=== PATIENT | female | born 2000 | race Two or more races ===

== ENCOUNTER 2024-09-27 17:19 | Emergency (ER) | payer OTHER, SELFPAY ==
[2024-09-27 17:20] VITALS: BP 147/94
[2024-09-27 17:55] LABS: % Basophils 0.7 % (0-2); % Eosinophils 2.8 % (0-6); % Immature Granulocytes 0.3 % (0-0.5); % Lymphocytes 34.6 % (20.5-51.1); % Monocytes 7.7 % (1.7-9.3); % Neutrophils 53.9 % (42.2-75.2); Absolute Basophils 0.1 10^3/uL (0-0.2); Absolute Eosinophils 0.2 10^3/uL (0-0.7); Absolute Lymphocytes 2.3 10^3/uL (1.2-3.4); Absolute Monocytes 0.5 10^3/uL (0.1-0.6); Absolute Neutrophils 3.7 10^3/uL (1.4-6.5); Hematocrit 34.8 % (37.0-47.0); Hemoglobin 11.5 g/dL (12.0-16.0); Mean Corpuscular Hgb 27.3 pg (27.0-31.0); Mean Corpuscular Volume 82.5 fL (81.0-99.0); Mean Platelet Volume 9.5 fL (7.4-10.4); Nucleated Red Blood Cells % 0 %; Platelet Count 272 10^3/uL (130-400); Red Blood Cell Count 4.22 10^6/uL (4.20-5.40); Red Cell Dist. Width 14.8 % (11.5-14.5); Urine Albumin Negative (Neg - Trace); Urine Bilirubin Negative (Negative); Urine Character Slightly Cloudy (Clear); Urine Color Yellow; Urine Glucose Negative (Negative); Urine Ketone Negative (Negative); Urine Leukocyte 1+ (Negative); Urine Nitrite Negative (Negative); Urine Occult Blood Negative (Negative); Urine Specific Gravity 1.005 (<1.030); Urine Urobilinogen Negative (Neg - 1+); White Blood Cell Count 6.8 10^3/uL (4.8-10.8)
[2024-09-27 18:04] LABS: Urine Bacteria Few (Negative); Urine Red Blood Cell 0-2 /HPF (0-2); Urine Squamous Cell 26-30 /LPF (Few)
[2024-09-27 18:06] LABS: HCG, Serum Qualitative Screen Positive
[2024-09-27 18:09] LABS: ALT (SGPT) 26 U/L (0-35); AST (SGOT) 47 U/L (14-36); Albumin 5.1 g/dl (3.5-5.0); Alkaline Phosphatase 56 U/L (38-126); Blood Urea Nitrogen 8 mg/dl (7-17); Calcium 9.6 mg/dl (8.4-10.2); Carbon Dioxide 21 mmol/L (22-30); Chloride 102 mmol/L (98-107); Glucose 94 mg/dl (70-99); Lipase 150 U/L (23-300); Potassium 4.1 mmol/L (3.5-5.1); Sodium 135 mmol/L (135-145); Total Bilirubin 0.7 mg/dl (0.2-1.3); Total Protein 7.7 g/dl (6.3-8.2); eGFR > 60.00
--- NOTE | 2024-09-27 20:27 | ED.GENMED ---
History of Present Illness
General
Chief Complaint: Abdominal Symptoms
Source: patient
Exam Limitations: none
Time Seen by Provider: 09/27/24 19:16
Nursing documentation reviewed up to this point in time: agreed with
History of Present Illness
History of Present Illness:
24-year-old female from [facility] presents with urinary frequency, lower abdominal pain similar to when she had a UTI also states her menstrual cycle was late, no fevers no nausea or vomiting, she was not surprised when I told her she was
sounds like she has been trying for about a year
Phy Exam
Physical Exam
Physical Exam:
Physical Exam
General: no apparent distress, not acutely ill
Neck: No jaundice
Lungs: no acute respiratory distress.
Abdomen: Soft nontender
Neuro: alert and oriented. no focal neurological deficits
Skin: no rash
Psychiatric: well kept. interactive and cooperative
Extremities: no edema.
Course
Orders/Labs/Results
Orders:
Orders
09/27/24 17:23
Test Result ONCE
09/27/24 17:31
Beta HCG Quantitative Urgent
Is this a screen?: No
Comment: ADDON
Complete Blood Count/With Diff Urgent
Comprehensive Metabolic Panel Urgent
HCG, Serum Qualitative Screen Urgent
Lipase Urgent
Urinalysis Reflex To Culture Urgent
Date Specimen was Collected: 09/27/24
Time Specimen was Collected: 17:23
Urine Microscopic Reflex Cult Urgent
Urine Culture Urgent
KENDRA Source: U
Specimen Description:
Date Specimen was Collected: 09/27/24
Time Specimen was Collected: 17:23
09/27/24 19:16
US W Transvaginal Urgent
Reason For Exam: pain
09/27/24 19:46
Add On- LAB Urgent
Tests Added?: Beta hcg quant.
09/27/24 21:40
CefTRIAXone [Rocephin] 1,000 mg IV NOW STA
09/27/24 21:50
Sterile Water [Sterile Water For Injection] 10 ml .ROUTE .STK-MED ONE
Abnormal Lab Results
09/27/24
17:31
Hgb 11.5 L g/dL
(12.0-16.0)
Hct 34.8 L %
(37.0-47.0)
RDW 14.8 H %
(11.5-14.5)
Carbon Dioxide 21 L mmol/L
(22-30)
Creatinine 0.5 L mg/dL
(0.6-1.0)
AST 47 H U/L
(14-36)
Albumin 5.1 H g/dl
(3.5-5.0)
Leukocyte Esterase Rfl 1+ A
(Negative)
Urine Bacteria (Reflex) Few A
(Negative)
09/27/24 17:31
09/27/24 17:31
Vital Signs
Initial and Last Documented VS:
Initial Vital Signs
Temp Pulse Resp BP Pulse Ox
98.3 F 86 16 147/94 100
09/27/24 17:20 09/27/24 17:20 09/27/24 17:20 09/27/24 17:20 09/27/24 17:20
Last Documented Vital Signs
Temp Pulse Resp BP Pulse Ox
98.3 F 78 16 114/79 98
09/27/24 17:20 09/27/24 21:57 09/27/24 21:57 09/27/24 21:57 09/27/24 21:57
MDM/Problems Addressed
Differential Diagnosis Includes:
UTI, , ectopic , no signs of pyelonephritis by history and physical
MDM/Problems Addressed:
Pelvic pain, positive possible UTI
Acute Exacerbation and/or Progression of Chronic Illness:
Prior UTI
*Critical Care Note
Total Time (30-74mins, 75-104mins- exclusive of procedures): Not Applicable
Update Note
Update Note:
Update, discharge instructions given to the patient by myself me at the [facility] radiologist
ED Attending Note
-
Portions of this chart may have been created with voice recognition software.� Occasional wrong word or��sound alike� substitutions may have occurred due to the inherent limitations of voice recognition software.
Discharge Plan
Departure
Patient Disposition: Home (Routine Discharge)
Date of Disposition: 09/27/24
Time of Disposition: 21:53
Patient with high blood pressure during this ER visit?: No
Condition: Good
Discharge Problem:
UTI (urinary tract infection), Threatened miscarriage in early
Prescriptions:
New
cephalexin 500 mg capsule
500 mg PO TID 7 Days Qty: 21 0RF
Referrals:
Day Watkins MD [Active] - Next open appointment
Activity Restrictions/Additional Instructions:
You need repeat blood work in 2 to 3 days either through gynecology or return to the ER
Return to the ER if increased pain fever vomiting or any other concerns
Interventions
Interventions:
*Risk Screen - Suicide Last Done: 09/27/24 20:07
*General Assessment Last Done: 09/27/24 20:07
*Neglect/Abuse Screening Last Done: 09/27/24 20:07
ED- Fall Risk Assessment Last Done: 09/27/24 19:30
*ED COVID-19 Vaccine History Last Done: 09/27/24 20:07
XS-Fihnez-Beomnsftxw Assessment Last Done: 09/27/24 19:30
Discharge Date and Time
Print Language: NEPALI
[2024-09-27 20:41] LABS: Beta HCG Quantitative 119.87 mIU/ml
[2024-09-27 21:57] VITALS: BP 114/79
[2024-09-27] MEDS: ROCEPHIN 1000 MG IV (22:04)
--- NOTE | 2024-09-27 22:04 | EDRN ---
Verified with patient that she is not bleeding
== END 2024-09-27 22:34 | disposition home or self-care (01) ==
LOC: EMR 17:19
PROVIDERS: Emergency Medicine; EMERGENCY PHYSICIAN Emergency Medicine
DX: O20.0 Threatened abortion (principal); O23.41 Unspecified infection of urinary tract in pregnancy, first trimester; N39.0 Urinary tract infection, site not specified; Z3A.00 Weeks of gestation of pregnancy not specified
CPT/HCPCS: 99284; 96374; 76801; 76817; 80053; 81003; 81015; 83690; 84702; 84703; 85025; 87086